=== PATIENT | male | born 1980 | race Asian ===

== ENCOUNTER → 2021-02-24 | Outpatient (CLI) | payer OTHER ==
--- NOTE | 2021-02-24 16:23 | REP ---
INDICATION: PAIN IN RT ANKLE AND JOINT OF RT FOOT COMPARISON: None. FINDINGS: There is no fracture or dislocation. Mineralization and joint spaces are normal. There are no calcifications or foreign bodies. IMPRESSION: Essentially negative right ankle. <Electronically signed by Ayush Holcomb > 02/24/21 [id number]
== END ==
LOC: M RAD 15:52
PROVIDERS: ATTEND Physician Assistant Medical
DX: M25.571 Pain in right ankle and joints of right foot (principal)